=== PATIENT | female | born 1955 | race Native Hawaiian/Other Pacific Islander ===

== ENCOUNTER 2017-08-29 10:54 | Emergency (ER) | payer OTHER ==
[2017-08-29 10:54] VITALS: BMI 26.4
--- NOTE | 2017-08-29 11:33 | C.PDOC ---
History Of Present Illness 61 y/o female presents requesting refill of losartan and meclizine; pt last took losartan this morning. pt denies any dizziness at this time. c/o foul smelling urine x 2 weeks with no abdominal pain , nausea. vomiting, fever. pt has no pmd, sts she has been getting her medications from the [facility]. Time Seen by Provider: 08/29/17 11:28 Chief Complaint (Nursing): Med Refill History Per: Patient History/Exam Limitations: no limitations Onset/Duration Of Symptoms: Other (two weeks) Current Symptoms Are (Timing): Still Present Past Medical History Reviewed: Historical Data, Nursing Documentation, Vital Signs Vital Signs: Last Vital Signs Temp 97.7 F 08/29/17 11:37 Pulse 74 08/29/17 11:37 Resp 18 08/29/17 11:37 BP 113/73 08/29/17 11:37 Pulse Ox 100 08/29/17 22:25 - Medical History PMH: HTN Surgical History: No Surg Hx Family History: States: No Known Family Hx - Social History Hx Alcohol Use: No Hx Substance Use: No - Immunization History Hx Tetanus Toxoid Vaccination: No Hx Influenza Vaccination: No Hx Pneumococcal Vaccination: No Review Of Systems Constitutional: Negative for: Fever Gastrointestinal: Negative for: Nausea, Vomiting, Abdominal Pain Genitourinary: Positive for: Other (foul smelling urine) Neurological: Negative for: Dizziness Physical Exam - Physical Exam Appears: Non-toxic, No Acute Distress Skin: Warm, Dry Head: Atraumatic, Normacephalic Neck: Supple Cardiovascular: Rhythm Regular, No Murmur Respiratory: No Decreased Breath Sounds, No Wheezing Gastrointestinal/Abdominal: Bowel Sounds (good), Soft, No Tenderness, No Guarding, No Rebound Back: No CVA Tenderness Neurological/Psych: Oriented x3, Normal Speech, Normal Cognition ED Course And Treatment O2 Sat by Pulse Oximetry: 100 (RA) Pulse Ox Interpretation: Normal Progress Note: Plan: Urine Culture. Urinalysis Medical Decision Making Medical Decision Making: pt with uti symptoms, +le and wbc on ua, will tx with macrobid, also will give refill for losartan and meclizine, with recommendation for pt to go to clinic after discharge to make f/u appt. Disposition Counseled Patient/Family Regarding: Studies Performed, Diagnosis, Need For Followup, Rx Given - Disposition Referrals: [facility] [Outside] Disposition: HOME/ ROUTINE Disposition Time: 12:38 Condition: GOOD Additional Instructions: Please take medications as prescribed. Please make appointment to follow up in clinch as soon as possible. Drink increased amount of fluids. Prescriptions: Losartan [Cozaar] 50 mg PO DAILY #30 tab Meclizine [Meclizine*] 25 mg PO Q6 #15 tab Nitrofurantoin Macrocrystals [Macrobid] 100 mg PO BID #14 cap Instructions: Urinary Tract Infection, Adult (DC) Forms: [employer] (Lao), General Discharge Instructions - Clinical Impression Clinical Impression: Encounter for medication refill, UTI (urinary tract infection) - PA / [employer] / Resident Statement MD/DO has reviewed & agrees with the documentation as recorded. - Scribe Statement The provider has reviewed the documentation as recorded by the Scribe All medical record entries made by the Scribe were at my direction and personally dictated by me. I have reviewed the chart and agree that the record accurately reflects my personal performance of the history, physical exam, medical decision making, and the department course for this patient. I have also personally directed, reviewed, and agree with the discharge instructions and disposition.
[2017-08-29 11:38] VITALS: BP 113/73; PULSE 74; RESP 18; TEMP 97.7
[2017-08-29 11:42] VITALS: O2SAT 100
[2017-08-29 12:21] LABS: SQUAMOUS EPITHIAL 1 /hpf (0-5); URINE BACTERIA RARE (<OCC); URINE BILIRUBIN NEGATIVE (NEGATIVE); URINE BLOOD 1+ (NEGATIVE); URINE CLARITY Clear (Clear); URINE COLOR Straw (YELLOW); URINE GLUCOSE (UA) NORMAL (Normal); URINE LEUKOCYTE ESTERASE 2+ Leu/uL (Negative); URINE PROTEIN NEGATIVE (NEGATIVE); URINE UROBILINOGEN NORMAL mg/dL (0.2-1.0)
== END 2017-08-29 13:12 | disposition home or self-care (01) ==
LOC: C.ER 10:54
DX: N39.0 Urinary tract infection, site not specified (principal); Z76.0 Encounter for issue of repeat prescription; I10 Essential (primary) hypertension